=== PATIENT | female | born 1985 | race Caucasian/White ===

== ENCOUNTER 2016-06-25 20:22 | Emergency (ER) | payer MEDICAID, OTHER ==
[~2016-06-25] VITALS: Ht 165.1 cm; Wt 56.0 kg
[~2016-06-25 20:22] MED LIST: CEPH500C PO; IBUP800T23 PO; OXYC-360 PO; PRENTAB85; SENN1TAB11 PO
[2016-06-25 20:23] VITALS: BP 122/72; PULSE 118; RESP 16; TEMP 98.9; O2SAT 100
[2016-06-25] MEDS ORDERED: SODIUM CHLORIDE 0.9% FLUSH 10 ML FLUSH IV FLUSH PRN ×2 (22:15)
--- NOTE | 2016-06-25 22:17 | PD ---
HPI Chief Complaint: GI Complaint Time Seen by Provider: 22:02 Travel History International Travel<30 days: No Contact w/Intl Traveler<30days: No Traveled to known affect area: No History of Present Illness HPI 31-year-old female complains of right low quadrant abdominal pain. Patient states that the pain started this morning. Patient states the pain is cramping pain intermittent pain localized to right lower quadrant of the abdomen. Patient denies any pain radiation. Patient denies any fever chills. Patient denies any back pain. Patient denies any nausea vomiting diarrhea. Patient denies any dysuria or frequency. Patient denies any vaginal discharge or bleeding. Patient had similar pain episode and was seen at [facility] in [place] on June 17. Patient had blood tests done and pelvic exam done and pelvic ultrasound done at that time. Patient was diagnosed with dysmenorrhea. Patient states that the pain resolved completely the next day. Patient has been doing well until the pain started again on the right low quadrant of the abdomen today. On a scale of 1-10 the pain is a 7. PFSH Past Medical History Medical History: Denies Significant Hx Diminished Hearing: No ?: Unknown LMP: 06/14/16 Past Surgical History Section: Yes Social History Alcohol Use: No Tobacco Use: No Substance Use: No Allergies-Medications (Allergen,Severity, Reaction): Coded Allergies: No Known Allergies (Unverified , 06/25/16) Reported Meds & Prescriptions Reported Meds & Active Scripts Active No Active Prescriptions or Reported Medications Review of Systems General / Constitutional: No: Fever Eyes: No: Visual changes HENT: No: Headaches Cardiovascular: No: Chest Pain or Discomfort Respiratory: No: Shortness of Breath Gastrointestinal: Positive: Abdominal Pain Genitourinary: No: Dysuria Musculoskeletal: No: Pain Skin: No Rash Neurologic: No: Weakness Psychiatric: No: Depression Endocrine: No: Polydipsia Hematologic/Lymphatic: No: Easy Bruising Physical Exam Narrative GENERAL: Well-nourished, well-developed patient. SKIN: Warm and dry. HEAD: Normocephalic. EYES: No scleral icterus. No injection or drainage. NECK: Supple, trachea midline. No JVD or lymphadenopathy. CARDIOVASCULAR: Regular rate and rhythm without murmurs, gallops, or rubs. RESPIRATORY: Breath sounds equal bilaterally. No accessory muscle use. GASTROINTESTINAL: Abdomen soft, nondistended. Patient has mild to moderate tenderness on palpation right lower quadrant of the abdomen. No rebound tenderness. No mass. MUSCULOSKELETAL: No cyanosis, or edema. BACK: Nontender without obvious deformity. No CVA tenderness. Pelvic exam deferred. Patient does not have a pelvic pain today and she had pelvic exam done 8 days ago and culture were negative. Data Data Last Documented VS Vital Signs Date Time Temp Pulse Resp B/P Pulse Ox O2 Delivery O2 Flow Rate FiO2 06/25/16 20:23 98.9 118 16 122/72 100 Room Air Orders Complete Blood Count With Diff (06/25/16 22:10) Comprehensive Metabolic Panel (06/25/16 22:10) Urinalysis - C+S If Indicated (06/25/16 22:10) Ct Abd/Pel W Iv Contrast(Rout) (06/25/16 22:10) Iv Access Insert/Monitor (06/25/16 22:10) Sodium Chloride 0.9% Flush (Ns Flush) (06/25/16 22:15) Ed Urine Pregnancytest Poc (06/25/16 22:10) Lipase (06/25/16 22:10) Sodium Chloride 0.9% Flush (Ns Flush) (06/25/16 22:15) Iohexol 350 Inj (Omnipaque 350 Inj) (06/25/16 23:33) Labs Laboratory Tests Test 06/25/16 06/25/16 22:10 23:10 White Blood Count 8.0 TH/MM3 Red Blood Count 4.48 MIL/MM3 Hemoglobin 13.1 GM/DL Hematocrit 37.4 % Mean Corpuscular Volume 83.6 FL Mean Corpuscular Hemoglobin 29.3 PG Mean Corpuscular Hemoglobin 35.0 % Concent Red Cell Distribution Width 12.6 % Platelet Count 237 TH/MM3 Mean Platelet Volume 8.9 FL Neutrophils (%) (Auto) 64.5 % Lymphocytes (%) (Auto) 28.2 % Monocytes (%) (Auto) 6.5 % Eosinophils (%) (Auto) 0.6 % Basophils (%) (Auto) 0.2 % Neutrophils # (Auto) 5.2 TH/MM3 Lymphocytes # (Auto) 2.3 TH/MM3 Monocytes # (Auto) 0.5 TH/MM3 Eosinophils # (Auto) 0.1 TH/MM3 Basophils # (Auto) 0.0 TH/MM3 CBC Comment DIFF FINAL Differential Comment Sodium Level 140 MEQ/L Potassium Level 3.6 MEQ/L Chloride Level 108 MEQ/L Carbon Dioxide Level 23.1 MEQ/L Anion Gap 9 MEQ/L Blood Urea Nitrogen 12 MG/DL Creatinine 0.64 MG/DL Estimat Glomerular Filtration 109 ML/MIN Rate Random Glucose 154 MG/DL Calcium Level 9.0 MG/DL Total Bilirubin 0.3 MG/DL Aspartate Amino Transf 16 U/L (AST/SGOT) Alanine Aminotransferase 25 U/L (ALT/SGPT) Alkaline Phosphatase 69 U/L Total Protein 7.3 GM/DL Albumin 3.8 GM/DL Lipase 135 U/L Urine Color YELLOW Urine Turbidity HAZY Urine pH 5.5 Urine Specific [place] 1.023 Urine Protein NEG mg/dL Urine Glucose (UA) NEG mg/dL Urine Ketones NEG mg/dL Urine Occult Blood NEG Urine Nitrite NEG Urine Bilirubin NEG Urine Urobilinogen LESS THAN 2.0 MG/DL Urine Leukocyte Esterase MOD Urine RBC 1 /hpf Urine WBC 4 /hpf Urine Squamous Epithelial 7 /hpf Cells Urine Mucus FEW /lpf Microscopic Urinalysis Comment CULT NOT INDICATED MDM Medical Decision Making Medical Screen Exam Complete: Yes Emergency Medical Condition: Yes Interpretation(s) Last Impressions Abdomen/Pelvis CT 06/25/160 Signed Impressions: Service Date/Time: June 23:21 - CONCLUSION: 1. No acute abnormality to explain the patient's pain. In particular, the appendix is normal by CT criteria. 2. 4 mm lesion involving the tip of the liver. This is too small to accurately characterize with CT but likely relates to a cyst or hemangioma. Jamal Lai Jr., MD 12:23 AM. CBC within normal limit. CMP within normal limit. UA is negative. Differential Diagnosis Differential diagnosis including UTI, pyelonephritis, nephrolithiasis, appendicitis, ovarian cyst, ovarian torsion, ectopic . Narrative Course 31-year-old female with right low quadrant abdominal pain. Patient had blood tests and negative pelvic ultrasound recently. Diagnosis Primary Impression: Abdominal colic Patient Instructions: General Instructions Additional Instructions: Tylenol for pain. Follow-up with personal physician and GI specialist. Return if worse. Med/Other Pt SpecificInfo: No Meds Exist/No RX given Scripts No Active Prescriptions or Reported Meds Disposition: DISCHARGE HOME Condition: Stable Dandre Albright MD Jun 25, 2016 22:16
[2016-06-25 22:34] LABS: AUTOMATED NEUTROPHIL # 5.2 TH/MM3 (1.8-7.7); BASOPHIL % 0.2 % (0.0-2.0); EOSINOPHIL # 0.1 TH/MM3 (0-0.4); EOSINOPHIL % 0.6 % (0.0-4.0); HEMATOCRIT 37.4 % (35.0-46.0); HEMO FLAGS DIFF FINAL; LYMPH % 28.2 % (9.0-44.0); LYMPHOCYTE # 2.3 TH/MM3 (1.0-4.8); MEAN CELL VOLUME 83.6 FL (80.0-100.0); MEAN CORPUSCULAR HEMOGLOBIN 29.3 PG (27.0-34.0); MONO % 6.5 % (0.0-8.0); NEUT % 64.5 % (16.0-70.0); PLATELET COUNT 237 TH/MM3 (150-450); RED BLOOD COUNT 4.48 MIL/MM3 (4.00-5.30); RED CELL DISTRIBUTION WIDTH 12.6 % (11.6-17.2)
[2016-06-25 22:58] LABS: ANION GAP 9 MEQ/L (5-15); AST (GOT) 16 U/L (15-37); BICARBONATE 23.1 MEQ/L (21.0-32.0); BLOOD UREA NITROGEN 12 MG/DL (7-18); CHLORIDE 108 MEQ/L (98-107); GLOMERULAR FILTRATION RATE 109 ML/MIN (>89); POTASSIUM 3.6 MEQ/L (3.5-5.1); SODIUM (NA) 140 MEQ/L (136-145)
[2016-06-25 23:01] LABS: ALKALINE PHOSPHATASE 69 U/L (45-117); ALT (GPT) 25 U/L (10-53); TOTAL BILIRUBIN ADULT 0.3 MG/DL (0.2-1.0)
[2016-06-25] MEDS ORDERED: IOHEXOL 350 MG/ML 10 ML VIAL (for RAD DIAG) IV ONE (23:33)
[2016-06-25 23:42] LABS: BLOOD, URINE NEG (NEG); COMMENT (UR) CULT NOT INDICATED; CULTURE IF INDICATED CULT NOT INDICATED; GLUCOSE,URINE NEG (NEG); KETONE, URINE NEG (NEG); MUCUS URINE FEW /lpf (OCC); NITRITE,URINE NEG (NEG); PH, URINE 5.5 (5.0-8.5); SQUAMOUS EPITHELIAL CELL URINE 7 /hpf (0-5); URINE COLOR YELLOW (YELLW/STRAW)
--- NOTE | 2016-06-25 23:49 | RADRPT ---
EXAM DATE/TIME: 06/25/2016 23:21 [facility] COMPARISON: No previous studies available for comparison. INDICATIONS : Right lower quadrant pain with nausea, vomiting, and diarrhea. IV CONTRAST: 70 cc Omnipaque 350 (iohexol) IV ORAL CONTRAST: No oral contrast ingested. RADIATION DOSE: 4.56 CTDIvol (mGy) MEDICAL HISTORY : None SURGICAL HISTORY : None. ENCOUNTER: Initial ACUITY: 1 day PAIN SCALE: 9/10 LOCATION: Right lower quadrant abdomen TECHNIQUE: Volumetric scanning of the abdomen and pelvis was performed. Using automated exposure control and ad justment of the mA and/or kV according to patient size, radiation dose was kept as low as reasonably achievable to obtain optimal diagnostic quality images. FINDINGS: LOWER LUNGS: The visualized lower lungs are clear. LIVER: Homogeneous density. A 4 mm low-attenuation focus is seen involving the tip of the right lobe. There is no dilation of the biliary tree. No calcified gallstones. SPLEEN: Normal size without lesion. PANCREAS: Within normal limits. KIDNEYS: Normal in size and shape. There is no mass, stone or hydronephrosis. ADRENAL GLANDS: Within normal limits. VASCULAR: There is no aortic aneurysm. BOWEL/MESENTERY: The stomach, small bowel, and colon demonstrate no acute abnormality. There is no free intraperitone al air or fluid. The appendix is normal by CT criteria. ABDOMINAL WALL: Within normal limits. RETROPERITONEUM: There is no lymphadenopathy. BLADDER: No wall thickening or mass. REPRODUCTIVE: Within normal limits. INGUINAL: There is no lymphadenopathy or hernia. MUSCULOSKELETAL: Within normal limits for patient age. CONCLUSION: 1. No acute abnormality to explain the patient's pain. In particular, the appendix is normal by CT cr iteria. 2. 4 mm lesion involving the tip of the liver. This is too small to accurately characterize with CT b ut likely relates to a cyst or hemangioma. Jamal Lai Jr., MD on June 25, 2016 at 23:42 Board Certified Radiologist. This report was verified electronically.
== END 2016-06-26 00:33 | disposition home or self-care (01) ==
LOC: NEPE 20:22
DX: R10.84 Generalized abdominal pain (principal)
CPT/HCPCS: 74177; 80053; 81001; 83690; 84703; 85025; 99284; Q9967

== ENCOUNTER 2016-07-07 18:02 | Emergency (ER) | payer MEDICAID ==
[~2016-07-07] VITALS: Ht 152.4 cm; Wt 60.0 kg
[2016-07-07 18:04] VITALS: BP 132/69; PULSE 126; RESP 12; TEMP 98.1; O2SAT 99
--- NOTE | 2016-07-07 18:14 | PD ---
Physical Exam Date Seen by Provider: Jul 07, 2016 Time Seen by Provider: 18:12 Narrative 31 YOHF C/O SORE THROAT,N/V SINCE YEST. ABD PAIN. NO F/C. NO URINARY PROBLEMS. LMP06/14/16 VSS. AWAITING BED PLACEMENT Data Data Last Documented VS Vital Signs Date Time Temp Pulse Resp B/P Pulse Ox O2 Delivery O2 Flow Rate FiO2 07/07/16 18:04 98.1 126 12 132/69 99 MDM Medical Record Reviewed: Yes Supervised Visit with SHADE: Yes Scripts No Active Prescriptions or Reported MedEriberto Bourgeois Jul 07, 2016 18:14
--- NOTE | 2016-07-07 19:55 | PD ---
HPI Chief Complaint: GI Complaint Time Seen by Provider: 19:50 Travel History International Travel<30 days: No Contact w/Intl Traveler<30days: No Traveled to known affect area: No History of Present Illness HPI Patient is a 31-year-old female presents to the emergency department evaluation of sore throat, vomiting 2 today, nasal congestion, headache. She states her symptoms started today. She also reports right lower quadrant abdominal pain that is unchanged from her prior visit. Patient reports her last menstrual period was 06/14/16. [facility] Past Medical History Diminished Hearing: No Thyroid Disease: Yes (hyper) Tetanus Vaccination: > 5 Years ?: Not LMP: 06/14/2016 Past Surgical History Abdominal Surgery: Yes ( ) Section: Yes Social History Alcohol Use: No Tobacco Use: No Substance Use: No Allergies-Medications (Allergen,Severity, Reaction): Coded Allergies: No Known Allergies (Unverified , 06/25/16) Reported Meds & Prescriptions Reported Meds & Active Scripts Active No Active Prescriptions or Reported Medications Review of Systems Except as stated in HPI: all other systems reviewed are Neg General / Constitutional: No: Fever, Chills HENT: Positive: Headaches, Sore Throat, Congestion Cardiovascular: No: Chest Pain or Discomfort Respiratory: Positive: Cough, No: Shortness of Breath Gastrointestinal: Positive: Nausea, Vomiting (2, the last time was at 5:30) Genitourinary: No: Dysuria Musculoskeletal: No: Myalgias Neurologic: No: Weakness, Dizziness, Syncope Physical Exam Narrative GENERAL: Well-developed, well-nourished, alert female. Resting comfortably in no acute distress. SKIN: Focused skin assessment warm/dry. HEAD: Atraumatic. Normocephalic. EYES: Pupils equal and round. No scleral icterus. No injection or drainage. 1+ bilateral tonsillar hypertrophy. Mild erythema noted to posterior pharynx. ENT: No nasal bleeding or discharge. Mucous membranes pink and moist. NECK: Trachea midline. No JVD. CARDIOVASCULAR: Regular rate and rhythm. No murmur appreciated. RESPIRATORY: No accessory muscle use. Clear to auscultation. Breath sounds equal bilaterally. GASTROINTESTINAL: Abdomen soft, mildly tender right lower quadrant, no rebound, no guarding, nondistended. Hepatic and splenic margins not palpable. Positive bowel sounds. MUSCULOSKELETAL: No obvious deformities. No clubbing. No cyanosis. No edema. NEUROLOGICAL: Awake and alert. No obvious cranial nerve deficits. Motor grossly within normal limits. Normal speech. PSYCHIATRIC: Appropriate mood and affect; insight and judgment normal. Data Data Last Documented VS Vital Signs Date Time Temp Pulse Resp B/P Pulse Ox O2 Delivery O2 Flow Rate FiO2 07/07/16 18:04 98.1 126 12 132/69 99 Orders Group A Rapid Strep Screen (07/07/16 19:46) Influenzae A/B Antigen (07/07/16 19:46) Iv Access Insert/Monitor (07/07/16 19:46) Sodium Chloride 0.9% Flush (Ns Flush) (07/07/16 20:00) Ondansetron Inj (Zofran Inj) (07/07/16 20:00) Sodium Chlor 0.9% 1000 Ml Inj (Ns 1000 M (07/07/16 20:00) Strep Culture (Group A) (07/07/16 20:00) Sodium Chlor 0.9% 1000 Ml Inj (Ns 1000 M (07/07/16 20:45) MDM Medical Decision Making Medical Screen Exam Complete: Yes Emergency Medical Condition: Yes Interpretation(s) Vital Signs Date Time Temp Pulse Resp B/P Pulse Ox O2 Delivery O2 Flow Rate FiO2 07/07/16 18:04 98.1 126 12 132/69 99 Differential Diagnosis influenza vs strep pharyngitis vs viral syndrome vs gastroenteritis Narrative Course Patient is a 31-year-old female presenting to the emergency department for evaluation of a sore throat, vomiting 2, right lower quadrant abdominal pain which is chronic. Patient denies any fevers, chills, chest pain, shortness of breath. Her symptoms started this morning, she did not contact her primary doctor. She hasn't taken anything to alleviate the symptoms. Her elevated on arrival at 124, IV fluids 1 L ordered. Patient is Afebrile and her vital signs are otherwise stable. Strep and influenza are both negative. Patient continues to be tachycardic with a rate of 116, second liter of IV fluids ordered. Care of patient transferred to Jayesh MARTÍNEZ at the end my shift. He will determine patient's disposition. Scripts No Active Prescriptions or Reported Meds Jacy Anthony Jul 07, 2016 19:55
[2016-07-07] MEDS ORDERED: SODIUM CHLOR 0.9% 1000 ML INJ 1,000 ML IV ONE ×2 (20:00→20:45)
[2016-07-07] MEDS ORDERED: ONDANSETRON HCL 4 MG/2 ML VIAL IV PUSH ONE (20:00)
[2016-07-07] MEDS ORDERED: SODIUM CHLORIDE 0.9% FLUSH 10 ML FLUSH IVF PRN (20:00)
[2016-07-07 21:00] VITALS: BP 121/74; PULSE 104; RESP 16; TEMP 98.1; O2SAT 100
--- NOTE | 2016-07-07 21:42 | PD ---
Physical Exam Date Seen by Provider: Jul 07, 2016 Time Seen by Provider: 21:42 Narrative I was asked to see this patient by Zandra Lay at change of shift. Patient came in with nausea and vomiting 2 today with sore throat, and mild right upper quadrant pain. Labs are negative for influenza or strep throat. Patient states she had some heartburn associated with her symptoms today. She states she feels much improved after the 2 L of normal saline fluid that she was given today. Data Data Last Documented VS Vital Signs Date Time Temp Pulse Resp B/P Pulse Ox O2 Delivery O2 Flow Rate FiO2 07/07/16 18:04 98.1 126 12 132/69 99 Orders Group A Rapid Strep Screen (07/07/16 19:46) Influenzae A/B Antigen (07/07/16 19:46) Iv Access Insert/Monitor (07/07/16 19:46) Sodium Chloride 0.9% Flush (Ns Flush) (07/07/16 20:00) Ondansetron Inj (Zofran Inj) (07/07/16 20:00) Sodium Chlor 0.9% 1000 Ml Inj (Ns 1000 M (07/07/16 20:00) Strep Culture (Group A) (07/07/16 20:00) Sodium Chlor 0.9% 1000 Ml Inj (Ns 1000 M (07/07/16 20:45) Pantoprazole (Protonix) (07/07/16 21:45) MDM Medical Record Reviewed: Yes Supervised Visit with SHADE: Yes Differential Diagnosis Gastritis. Gastroenteritis. Vomiting. Esophagitis. Narrative Course Patient is given pantoprazole 40 mg by mouth. Patient was felt stable for discharge home. Patient will be continued on omeprazole 40 mg daily for the next 30 days. Patient also given Zofran 4 mg one every 6 hours when necessary nausea. #12. Patient is to rest with fluids and take Tylenol as needed. Patient to follow local primary care physician or return to emergency Department with worsening symptoms as needed. Diagnosis Primary Impression: Gastro-esophageal reflux Qualified Code: K21.9 - Gastroesophageal reflux disease, esophagitis presence not specified Additional Impression: Vomiting Qualified Code: R11.2 - Non-intractable vomiting with nausea, unspecified vomiting type Referrals: [facility] Physician Patient Instructions: Gastroesophageal Reflux Disease (ED), General Instructions Additional Instruction: Patient is given pantoprazole 40 mg by mouth. Patient was felt stable for discharge home. Patient will be continued on omeprazole 40 mg daily for the next 30 days. Patient also given Zofran 4 mg one every 6 hours when necessary nausea. #12. Patient is to rest with fluids and take Tylenol as needed. Patient to follow local primary care physician or return to emergency Department with worsening symptoms as needed. Med/Other Pt SpecificInfo: Prescription(s) given Scripts No Active Prescriptions or Reported Meds Disposition: 01 DISCHARGE HOME Condition: Stable Jayesh Abbott Jul 07, 2016 21:42
[2016-07-07] MEDS ORDERED: PANTOPRAZOLE SOD 40 MG DELAYED RELEASE TAB PO ONE (21:45)
[2016-07-07] MEDS ORDERED: OMEP40CA2 PO (21:51)
[2016-07-07] MEDS ORDERED: ZOFR4TAB PO (22:31)
== END 2016-07-07 22:42 | disposition home or self-care (01) ==
LOC: NEPA 18:02
DX: K21.9 Gastro-esophageal reflux disease without esophagitis (principal); R11.2 Nausea with vomiting, unspecified
CPT/HCPCS: 87081; 87804; 87880; 96361; 96374; 99284; J2405; J7030

== ENCOUNTER 2016-07-28 17:59 | Emergency (ER) | payer MEDICAID ==
[~2016-07-28] VITALS: Ht 152.4 cm; Wt 57.0 kg
[~2016-07-28 17:59] MED LIST changes: -CEPH500C PO; -IBUP800T23 PO; +OMEP40CA2 PO; -OXYC-360 PO; -PRENTAB85; -SENN1TAB11 PO; +ZOFR4TAB PO
[2016-07-28 18:01] VITALS: BP 128/86; PULSE 118; RESP 16; TEMP 98.3; O2SAT 99
--- NOTE | 2016-07-28 18:06 | PD ---
Physical Exam Date Seen by Provider: Jul 28, 2016 Time Seen by Provider: 18:04 Narrative Pt presents to the ED for evaluation of cough and sore throat for 4 days as well as sinus congestion. Pt denies any medical history, but has been seen here many times recently. VSS, pt has not taken any OTC meds. Data Data Last Documented VS Vital Signs Date Time Temp Pulse Resp B/P Pulse Ox O2 Delivery O2 Flow Rate FiO2 07/28/16 18:01 98.3 118 16 128/86 99 MDM Supervised Visit with SHADE: Jacy Pastrana Jul 28, 2016 18:06
--- NOTE | 2016-07-28 18:22 | PD ---
HPI . cough, sore throat, fever, and chest pain for 4 days Chief Complaint: Cold / Flu Symptoms Time Seen by Provider: 18:21 Travel History International Travel<30 days: No Contact w/Intl Traveler<30days: No Traveled to known affect area: No History of Present Illness HPI 31-year-old female with possible history of newly dx tachycardia here with complaints of cough, sore throat, fever and chest pain. Patient said that for the past 4 days she's been having some cough, sore throat and fever. On examination her heart rate is tachycardic, I asked her if this is normal and she tells me that she was told this once before and told that she needs to see a specialist. She has not yet seen anybody regarding her rapid heart rate, and tells me that today she's had some chest pain. When asked to point to the location of her chest pain she shows me right in the left chest wall and tells me it is deep and not reproducible on examination. She tells me she has had intermittent chest pain. She is somewhat of a poor historian and there is a slight language barrier as it does not seem luxembourger is her first language. She denies any nausea, vomiting or diaphoresis. SHe tells me she has been eating regularly. ON LICENSE OF [facility] Past Medical History Medical History: Denies Significant Hx Diminished Hearing: No Thyroid Disease: Yes (hyper) ?: Not LMP: 07/15/2016 Past Surgical History Abdominal Surgery: Yes ( ) Section: Yes Social History Alcohol Use: No Tobacco Use: No Substance Use: No Allergies-Medications (Allergen,Severity, Reaction): Coded Allergies: No Known Allergies (Unverified , 07/28/16) Reported Meds & Prescriptions Reported Meds & Active Scripts Active Propranolol (Propranolol HCl) 10 Mg Tab 10 Mg PO Q12HR Review of Systems General / Constitutional: Positive: Fever Eyes: No: Visual changes HENT: Positive: Sore Throat, No: Headaches Cardiovascular: Positive: Chest Pain or Discomfort, Palpitations Respiratory: Positive: Cough, No: Shortness of Breath Gastrointestinal: No: Abdominal Pain Genitourinary: No: Dysuria Musculoskeletal: No: Pain Skin: No Rash Neurologic: No: Weakness Psychiatric: No: Depression Endocrine: No: Polydipsia Hematologic/Lymphatic: No: Easy Bruising Physical Exam Narrative GENERAL: AAO x 3, no acute distress, Well-nourished, well-developed patient. SKIN: Warm and dry. No visible rashes or bruising. HEAD: Normocephalic and atraumatic. EYES: No scleral icterus. No injection or drainage. EOM intact, PERRLA ENT: No nasal drainage noted. Mucous membranes pink. Airway patent. Mild posterior pharynx erythema without exudates. TMs are cloudy bilaterally. NECK: Supple, trachea midline. No JVD. Slight lymphadenopathy of the cervical chain. CARDIOVASCULAR: Regular rate and rhythm without murmurs, gallops, or rubs. Heart rate on examination 120, rechecked with electronic cuff 115-120 RESPIRATORY: Breath sounds equal bilaterally. No accessory muscle use. No rhonchi or rales. No wheezing GASTROINTESTINAL: Abdomen soft, non-tender, nondistended. EXTREMITIES: No cyanosis or edema. BACK: Nontender without obvious deformity. No CVA tenderness. PSYCH: AAO x 3, normal affect. Data Data Last Documented VS Vital Signs Date Time Temp Pulse Resp B/P Pulse Ox O2 Delivery O2 Flow Rate FiO2 07/28/16 22:58 112 17 118/76 100 07/28/16 20:32 Room Air 07/28/16 18:01 98.3 Orders Electrocardiogram (07/28/16 18:33) Ckmb (Isoenzyme) Profile (07/28/16 18:33) Complete Blood Count With Diff (07/28/16 18:33) Comprehensive Metabolic Panel (07/28/16 18:33) D-Dimer (07/28/16 18:33) Magnesium (Mg) (07/28/16 18:33) Prothrombin Time / Inr (Pt) (07/28/16 18:33) Act Partial Throm Time (Ptt) (07/28/16 18:33) Troponin I (07/28/16 18:33) Iv Access Insert/Monitor (07/28/16 18:33) Oximetry (07/28/16 18:33) Sodium Chloride 0.9% Flush (Ns Flush) (07/28/16 18:45) Lactic Acid Sepsis Protocol (07/28/16 18:33) Urinalysis - C+S If Indicated (07/28/16 18:33) Influenzae A/B Antigen (07/28/16 18:33) Blood Culture (07/28/16 18:33) Blood Glucose (07/28/16 18:33) Group A Rapid Strep Screen (07/28/16 18:33) Chest, Pa & Lat (07/28/16 18:33) Sodium Chlor 0.9% 1000 Ml Inj (Ns 1000 M (07/28/16 18:45) Strep Culture (Group A) (07/28/16 19:00) Sodium Chlor 0.9% 1000 Ml Inj (Ns 1000 M (07/28/16 21:00) Urine Culture (07/28/16 20:30) Thyroid Stimulating Hormone (07/28/16 21:22) Free T3 (07/28/16 21:22) Free Thyroxine (T4) (07/28/16 21:22) Propranolol (Inderal) (07/28/16 22:30) Labs Laboratory Tests Test 07/28/16 07/28/16 07/28/16 19:00 20:30 21:22 White Blood Count 7.5 TH/MM3 Red Blood Count 5.12 MIL/MM3 Hemoglobin 14.8 GM/DL Hematocrit 43.0 % Mean Corpuscular Volume 83.9 FL Mean Corpuscular Hemoglobin 29.0 PG Mean Corpuscular Hemoglobin 34.5 % Concent Red Cell Distribution Width 12.6 % Platelet Count 274 TH/MM3 Mean Platelet Volume 9.0 FL Neutrophils (%) (Auto) 59.6 % Lymphocytes (%) (Auto) 30.9 % Monocytes (%) (Auto) 8.1 % Eosinophils (%) (Auto) 1.3 % Basophils (%) (Auto) 0.1 % Neutrophils # (Auto) 4.4 TH/MM3 Lymphocytes # (Auto) 2.3 TH/MM3 Monocytes # (Auto) 0.6 TH/MM3 Eosinophils # (Auto) 0.1 TH/MM3 Basophils # (Auto) 0.0 TH/MM3 CBC Comment DIFF FINAL Differential Comment Prothrombin Time 10.5 SEC Prothromb Time International 1.0 RATIO Ratio Activated Partial 25.2 SEC Thromboplast Time D-Dimer Quantitative (PE/DVT) 0.27 MG/L FEU Sodium Level 142 MEQ/L Potassium Level 4.1 MEQ/L Chloride Level 107 MEQ/L Carbon Dioxide Level 24.2 MEQ/L Anion Gap 11 MEQ/L Blood Urea Nitrogen 10 MG/DL Creatinine 0.55 MG/DL Estimat Glomerular Filtration 130 ML/MIN Rate Random Glucose 98 MG/DL Lactic Acid Level 1.1 mmol/L Calcium Level 9.6 MG/DL Magnesium Level 2.2 MG/DL Total Bilirubin 0.3 MG/DL Aspartate Amino Transf 18 U/L (AST/SGOT) Alanine Aminotransferase 27 U/L (ALT/SGPT) Alkaline Phosphatase 86 U/L Total Creatine Kinase 31 U/L Troponin I LESS THAN 0.02 NG/ML Total Protein 8.8 GM/DL Albumin 4.5 GM/DL Urine Color YELLOW Urine Turbidity CLEAR Urine pH 5.0 Urine Specific [place] 1.016 Urine Protein NEG mg/dL Urine Glucose (UA) NEG mg/dL Urine Ketones NEG mg/dL Urine Occult Blood NEG Urine Nitrite NEG Urine Bilirubin NEG Urine Urobilinogen LESS THAN 2.0 MG/DL Urine Leukocyte Esterase NEG Urine RBC LESS THAN 1 /hpf Urine WBC LESS THAN 1 /hpf Urine Squamous Epithelial 2 /hpf Cells Urine Bacteria RARE /hpf Urine Mucus FEW /lpf Microscopic Urinalysis Comment CATH-CULTURE IND Free Thyroxine 3.11 NG/DL Free Triiodothyronine (T3) 13.09 PG/ML pg/dL Thyroid Stimulating Hormone LESS THAN 3rd Gen 0.005 uIU/ML MDM Medical Decision Making Medical Screen Exam Complete: Yes Emergency Medical Condition: Yes Medical Record Reviewed: Yes Differential Diagnosis influenza, dehydration, sepsis, PNA, Narrative Course 31-year-old female with possible history of newly dx tachycardia here with complaints of cough, sore throat, fever and chest pain. Patient said that for the past 4 days she's been having some cough, sore throat and fever. On examination her heart rate is tachycardic, I asked her if this is normal and she tells me that she was told this once before and told that she needs to see a specialist. She has not yet seen anybody regarding her rapid heart rate, and tells me that today she's had some chest pain. When asked to point to the location of her chest pain she shows me right in the left chest wall and tells me it is deep and not reproducible on examination. She tells me she has had intermittent chest pain. She is somewhat of a poor historian and there is a slight language barrier as it does not seem lux[place] is her first language. She denies any nausea, vomiting or diaphoresis. SHe tells me she has been eating regularly. 1830:Patient seen and examined. She will need a medical bed for further evaluation. I will go ahead and start her testing. The next provider will determine her disposition. I discussed with Dr. Smith. 1902: I discussed the case with Jh Clayton PA-C. He is aware of the workup in progress. Patient is still waiting on medical bed. Scripts Propranolol 10 Mg Tab10 Mg PO Q12HR #60 TAB Ref 0 Prov:Davin Smith MD 07/28/16 Deidra Reyes Jul 28, 2016 18:21
[2016-07-28] MEDS ORDERED: SODIUM CHLOR 0.9% 1000 ML INJ 1,000 ML IV ONE ×2 (18:45→21:00)
[2016-07-28] MEDS ORDERED: SODIUM CHLORIDE 0.9% FLUSH 10 ML FLUSH IVF PRN (18:45)
--- NOTE | 2016-07-28 18:58 | RADRPT ---
EXAM DATE/TIME: 07/28/2016 18:47 [place] COMPARISON: No previous studies available for comparison. INDICATIONS : Cough and chest congestion for past few days. MEDICAL HISTORY : None. SURGICAL HISTORY : None. ENCOUNTER: Initial ACUITY: 3 days PAIN SCORE: 3/10 LOCATION: Bilateral chest FINDINGS: PA and lateral views of the chest demonstrate the lungs to be symmetrically aerated without evidence of mass, infiltrate or effusion. The cardiomediastinal contours are unremarkable. Osseous structure s are intact. CONCLUSION: No acute disease. Karl Gomez MD on July 28, 2016 at 18:56 Board Certified Radiologist. This report was verified electronically.
[2016-07-28 19:25] VITALS: BP 123/75; PULSE 113; RESP 18; O2SAT 100
[2016-07-28 19:40] LABS: AUTOMATED NEUTROPHIL # 4.4 TH/MM3 (1.8-7.7); BASOPHIL % 0.1 % (0.0-2.0); EOSINOPHIL # 0.1 TH/MM3 (0-0.4); EOSINOPHIL % 1.3 % (0.0-4.0); HEMO FLAGS DIFF FINAL; LYMPH % 30.9 % (9.0-44.0); LYMPHOCYTE # 2.3 TH/MM3 (1.0-4.8); MEAN CELL VOLUME 83.9 FL (80.0-100.0); MEAN CORPUSCULAR HGB CONC 34.5 % (32.0-36.0); MONO % 8.1 % (0.0-8.0); NEUT % 59.6 % (16.0-70.0); PLATELET COUNT 274 TH/MM3 (150-450); RED BLOOD COUNT 5.12 MIL/MM3 (4.00-5.30); RED CELL DISTRIBUTION WIDTH 12.6 % (11.6-17.2); WHITE BLOOD COUNT 7.5 TH/MM3 (4.0-11.0)
--- NOTE | 2016-07-28 19:49 | PD ---
Data Data Last Documented VS Vital Signs Date Time Temp Pulse Resp B/P Pulse Ox O2 Delivery O2 Flow Rate FiO2 07/28/16 22:58 112 17 118/76 100 07/28/16 20:32 Room Air 07/28/16 18:01 98.3 Orders Electrocardiogram (07/28/16 18:33) Ckmb (Isoenzyme) Profile (07/28/16 18:33) Complete Blood Count With Diff (07/28/16 18:33) Comprehensive Metabolic Panel (07/28/16 18:33) D-Dimer (07/28/16 18:33) Magnesium (Mg) (07/28/16 18:33) Prothrombin Time / Inr (Pt) (07/28/16 18:33) Act Partial Throm Time (Ptt) (07/28/16 18:33) Troponin I (07/28/16 18:33) Iv Access Insert/Monitor (07/28/16 18:33) Oximetry (07/28/16 18:33) Sodium Chloride 0.9% Flush (Ns Flush) (07/28/16 18:45) Lactic Acid Sepsis Protocol (07/28/16 18:33) Urinalysis - C+S If Indicated (07/28/16 18:33) Influenzae A/B Antigen (07/28/16 18:33) Blood Culture (07/28/16 18:33) Blood Glucose (07/28/16 18:33) Group A Rapid Strep Screen (07/28/16 18:33) Chest, Pa & Lat (07/28/16 18:33) Sodium Chlor 0.9% 1000 Ml Inj (Ns 1000 M (07/28/16 18:45) Strep Culture (Group A) (07/28/16 19:00) Sodium Chlor 0.9% 1000 Ml Inj (Ns 1000 M (07/28/16 21:00) Urine Culture (07/28/16 20:30) Thyroid Stimulating Hormone (07/28/16 21:22) Free T3 (07/28/16 21:22) Free Thyroxine (T4) (07/28/16 21:22) Propranolol (Inderal) (07/28/16 22:30) Labs Laboratory Tests Test 07/28/16 07/28/16 07/28/16 19:00 20:30 21:22 White Blood Count 7.5 TH/MM3 Red Blood Count 5.12 MIL/MM3 Hemoglobin 14.8 GM/DL Hematocrit 43.0 % Mean Corpuscular Volume 83.9 FL Mean Corpuscular Hemoglobin 29.0 PG Mean Corpuscular Hemoglobin 34.5 % Concent Red Cell Distribution Width 12.6 % Platelet Count 274 TH/MM3 Mean Platelet Volume 9.0 FL Neutrophils (%) (Auto) 59.6 % Lymphocytes (%) (Auto) 30.9 % Monocytes (%) (Auto) 8.1 % Eosinophils (%) (Auto) 1.3 % Basophils (%) (Auto) 0.1 % Neutrophils # (Auto) 4.4 TH/MM3 Lymphocytes # (Auto) 2.3 TH/MM3 Monocytes # (Auto) 0.6 TH/MM3 Eosinophils # (Auto) 0.1 TH/MM3 Basophils # (Auto) 0.0 TH/MM3 CBC Comment DIFF FINAL Differential Comment Prothrombin Time 10.5 SEC Prothromb Time International 1.0 RATIO Ratio Activated Partial 25.2 SEC Thromboplast Time D-Dimer Quantitative (PE/DVT) 0.27 MG/L FEU Sodium Level 142 MEQ/L Potassium Level 4.1 MEQ/L Chloride Level 107 MEQ/L Carbon Dioxide Level 24.2 MEQ/L Anion Gap 11 MEQ/L Blood Urea Nitrogen 10 MG/DL Creatinine 0.55 MG/DL Estimat Glomerular Filtration 130 ML/MIN Rate Random Glucose 98 MG/DL Lactic Acid Level 1.1 mmol/L Calcium Level 9.6 MG/DL Magnesium Level 2.2 MG/DL Total Bilirubin 0.3 MG/DL Aspartate Amino Transf 18 U/L (AST/SGOT) Alanine Aminotransferase 27 U/L (ALT/SGPT) Alkaline Phosphatase 86 U/L Total Creatine Kinase 31 U/L Troponin I LESS THAN 0.02 NG/ML Total Protein 8.8 GM/DL Albumin 4.5 GM/DL Urine Color YELLOW Urine Turbidity CLEAR Urine pH 5.0 Urine Specific [place] 1.016 Urine Protein NEG mg/dL Urine Glucose (UA) NEG mg/dL Urine Ketones NEG mg/dL Urine Occult Blood NEG Urine Nitrite NEG Urine Bilirubin NEG Urine Urobilinogen LESS THAN 2.0 MG/DL Urine Leukocyte Esterase NEG Urine RBC LESS THAN 1 /hpf Urine WBC LESS THAN 1 /hpf Urine Squamous Epithelial 2 /hpf Cells Urine Bacteria RARE /hpf Urine Mucus FEW /lpf Microscopic Urinalysis Comment CATH-CULTURE IND Free Thyroxine 3.11 NG/DL Free Triiodothyronine (T3) 13.09 PG/ML pg/dL Thyroid Stimulating Hormone LESS THAN 3rd Gen 0.005 uIU/ML [facility] Supervised Visit with SHADE: Yes Narrative Course Patient care assumed from Deidra Woo at 1900. On my evaluation the patient she does have some mildly proptotic eyes and is tachycardic. She is aren't completed a liter fluid bolus and unresponsive in her heart rate. No second liter bolus was given and clinical suspicion for hyperthyroidism is present. Thyroid panel was sent which confirms hyperthyroidism. There is no indication that this is thyroid storm. On review of systems patient does have some symptoms suggestive of hyperthyroidism including hair thinning and weight loss. Patient states she feels well and would like to go home. Her heart rate is 110 currently. Given there is no thyroid storm and think that an outpatient follow-up can be safely done. I strongly encouraged the patient to follow up with her primary care provider this week. She will be started on Inderal in the first dose was given in the emergency department. Discussed hypotensive symptoms and if she should have them she should consider returning to emergency department to be seen. On the subject of her upper respiratory symptoms remainder of her labs are within normal limits. There is no indication for antibiotics or further testing at this time. She is stable for discharge at this time. Diagnosis Primary Impression: Tachycardia Additional Impression: Hyperthyroidism Additional Instruction: Follow-up with your primary care provider by phone tomorrow to set up an appointment as soon as possible. Tell them that your thyroid is overactive ( hyperthyroidism) Med/Other Pt SpecificInfo: Prescription(s) given Scripts Propranolol 10 Mg Tab10 Mg PO Q12HR #60 TAB Ref 0 Prov:Davin Smith MD 07/28/16 Disposition: 01 DISCHARGE HOME Condition: Stable Davin Smith MD Jul 28, 2016 19:49
[2016-07-28 20:12] LABS: APTT (PATIENT) 25.2 SEC (24.3-30.1); PROTHROMBIN TIME - PATIENT 10.5 SEC (9.8-11.6)
[2016-07-28 20:32] VITALS: BP 125/70; PULSE 112; RESP 18; O2SAT 100
[2016-07-28 20:55] LABS: ALT (GPT) 27 U/L (10-53); ANION GAP 11 MEQ/L (5-15); AST (GOT) 18 U/L (15-37); BICARBONATE 24.2 MEQ/L (21.0-32.0); BLOOD UREA NITROGEN 10 MG/DL (7-18); CHLORIDE 107 MEQ/L (98-107); GLOMERULAR FILTRATION RATE 130 ML/MIN (>89); MAGNESIUM 2.2 MG/DL (1.5-2.5); POTASSIUM 4.1 MEQ/L (3.5-5.1); SODIUM (NA) 142 MEQ/L (136-145)
[2016-07-28 20:55] LABS: BACTERIA, URINE RARE /hpf; BLOOD, URINE NEG (NEG); GLUCOSE,URINE NEG (NEG); KETONE, URINE NEG (NEG); MUCUS URINE FEW /lpf (OCC); NITRITE,URINE NEG (NEG); SQUAMOUS EPITHELIAL CELL URINE 2 /hpf (0-5); URINE COLOR YELLOW (YELLW/STRAW)
[2016-07-28 20:57] LABS: COMMENT (UR) CATH-CULTURE IND; CULTURE IF INDICATED CATH CULTURE IND
[2016-07-28 20:59] LABS: ALKALINE PHOSPHATASE 86 U/L (45-117); CREATINE KINASE 31 U/L (26-192); TOTAL BILIRUBIN ADULT 0.3 MG/DL (0.2-1.0)
[2016-07-28 22:19] LABS: FREE T3 13.09 PG/ML (2.18-3.98); FREE T4 3.11 NG/DL (0.76-1.46)
[2016-07-28] MEDS ORDERED: PROPRANOLOL HCL 10 MG TAB PO ONE (22:30)
[2016-07-28] MEDS ORDERED: PROP10TA6 PO (22:32)
[2016-07-28 22:58] VITALS: BP 118/76
--- NOTE | 2016-07-29 10:47 | EKG ---
Date Performed: 07/28/2016 Time Performed: 18:40:08 PTAGE: 31 years EKG: SINUS TACHYCARDIA ABNORMAL RHYTHM ECG NO PREVIOUS TRACING DOCTOR: Marianela Sandoval Interpretating Date/Time 07/29/2016 10:45:00
== END 2016-07-28 22:59 | disposition home or self-care (01) ==
LOC: NEPD 17:59
DX: R00.0 Tachycardia, unspecified (principal); E05.90 Thyrotoxicosis, unspecified without thyrotoxic crisis or storm; I49.9 Cardiac arrhythmia, unspecified
CPT/HCPCS: 71020; 80053; 81001; 82550; 83605; 83735; 84439; 84443; 84481; 84484; 85025; 85379; 85610; 85730; 87040; 87081; 87086; 87804; 87880; 93005; 96360; 99284; J7030

== ENCOUNTER 2016-09-09 18:11 | Emergency (ER) | payer MEDICAID ==
[~2016-09-09] VITALS: Ht 152.4 cm; Wt 56.5 kg
[~2016-09-09 18:11] MED LIST changes: -OMEP40CA2 PO; +PROP10TA6 PO; -ZOFR4TAB PO
[2016-09-09 18:12] VITALS: BP 119/65; PULSE 104; RESP 20; TEMP 98.8; O2SAT 98
--- NOTE | 2016-09-09 18:38 | PD ---
Physical Exam Time Seen by Provider: 18:37 Narrative 31yo F requesting refill for propranolol for hyperthyroidism. Last took medication August 30. Patient seen in triage. VS reviewed. Awaiting bed placement. Data Data Last Documented VS Vital Signs Date Time Temp Pulse Resp B/P Pulse Ox O2 Delivery O2 Flow Rate FiO2 09/09/16 18:12 98.8 104 20 119/65 98 Room Air [facility] Supervised Visit with SHADE: Leeanne Farley Sep 09, 2016 18:38
--- NOTE | 2016-09-09 19:18 | PD ---
HPI . needs refill on inderal/ no complaints Chief Complaint: Medication Refill Request Time Seen by Provider: 19:15 Travel History International Travel<30 days: No Contact w/Intl Traveler<30days: No Traveled to known affect area: No History of Present Illness HPI 31-year-old female here requesting a refill on her propanolol 10 mg. Patient tells me that she was given this prescription here in the emergency department. I actually remember this patient from her initial visit as I was the provider started her care. She was advised to follow-up with primary care provider and endocrinology. She was diagnosed with hyperthyroidism. She has no complaints. Her primary care provider will not provide her refills until she is seen by endocrinology, which she has not been able to do yet. PFSH Past Medical History Diminished Hearing: No Thyroid Disease: Yes (hyper) ?: Not LMP: 08/14/16 Past Surgical History Abdominal Surgery: Yes ( ) Section: Yes Social History Alcohol Use: No Tobacco Use: No Substance Use: No Allergies-Medications (Allergen,Severity, Reaction): Coded Allergies: No Known Allergies (Unverified , 07/28/16) Reported Meds & Prescriptions Reported Meds & Active Scripts Active Propranolol (Propranolol HCl) 10 Mg Tab 10 Mg PO Q12HR Review of Systems General / Constitutional: No: Fever Eyes: No: Visual changes HENT: No: Headaches Cardiovascular: No: Chest Pain or Discomfort Respiratory: No: Shortness of Breath Gastrointestinal: No: Abdominal Pain Genitourinary: No: Dysuria Musculoskeletal: No: Pain Skin: No Rash Neurologic: No: Weakness Psychiatric: No: Depression Endocrine: No: Polydipsia Hematologic/Lymphatic: No: Easy Bruising Physical Exam Narrative GENERAL: AAO x 3, no acute distress, Well-nourished, well-developed patient. SKIN: Warm and dry. No visible rashes or bruising. HEAD: Normocephalic and atraumatic. EYES: No scleral icterus. No injection or drainage. EOM intact, PERRLA exophthalmus left greater than right ENT: No nasal drainage noted. Mucous membranes pink. Airway patent. NECK: Supple, trachea midline. No JVD. CARDIOVASCULAR: Regular rate and rhythm without murmurs, gallops, or rubs. RESPIRATORY: Breath sounds equal bilaterally. No accessory muscle use. No rhonchi or rales. GASTROINTESTINAL: Abdomen soft, non-tender, nondistended. EXTREMITIES: No cyanosis or edema. BACK: Nontender without obvious deformity. No CVA tenderness. PSYCH: AAO x 3, normal affect. Data Data Last Documented VS Vital Signs Date Time Temp Pulse Resp B/P Pulse Ox O2 Delivery O2 Flow Rate FiO2 09/09/16 18:12 98.8 104 20 119/65 98 Room Air MDM Medical Decision Making Medical Screen Exam Complete: Yes Emergency Medical Condition: Yes Medical Record Reviewed: Yes Differential Diagnosis Medication refill, hyperthyroidism, less likely thyroid storm Narrative Course 31-year-old female here for refill on her propanolol. She has no complaints. I've advised her that I can provide her with 2 weeks worth of medication and ultimately she will need to see her primary care provider in endocrinology. I explained to her that she'll need to obtain further refills from her outpatient providers Patient verbalized understanding of instructions, questions were answered, and thanked me for their care. I advised them if their condition worsens, please return to the nearest emergency room for further care. Diagnosis Primary Impression: Medication refill Patient Instructions: General Instructions Additional Instructions: Please return to emergency department if your symptoms return or worsen. Follow up with your primary care provider. Med/Other Pt SpecificInfo: Prescription(s) given Scripts Propranolol 10 Mg Tab10 Mg PO Q12HR #30 TAB Ref 0 Prov:Al Bauer MD 09/09/16 Disposition: 01 DISCHARGE HOME Condition: Stable Deidra Reyes Sep 09, 2016 19:18
[2016-09-09] MEDS ORDERED: PROP10TA6 PO (19:19)
== END 2016-09-09 19:31 | disposition home or self-care (01) ==
LOC: NEPD 18:11
DX: E05.90 Thyrotoxicosis, unspecified without thyrotoxic crisis or storm (principal); Z76.0 Encounter for issue of repeat prescription
CPT/HCPCS: 99281

== ENCOUNTER 2017-03-30 15:15 | Emergency (ER) | payer MEDICAID ==
[2017-03-30 15:16] VITALS: BP 134/73; PULSE 97; RESP 12; TEMP 98.2; O2SAT 99
[2017-03-30] MEDS ORDERED: CLOT1CRE6 TOPICAL (16:25)
--- NOTE | 2017-03-30 16:30 | PD ---
HPI Chief Complaint: Skin Problem Time Seen by Provider: 16:19 Travel History International Travel<30 days: No Contact w/Intl Traveler<30days: No Traveled to known affect area: No History of Present Illness HPI Patient comes in complaining of a pruritic rash ongoing for approximately 2 weeks. Patient states she went to a different ER and had been given a prescription an allergic reaction. Patient states she took it for 5 days with no improvement of symptoms. Patient states started off as small read spot and has spread to bilateral lower extremities and under her breast. Patient states is pruritic in nature without radiation. Denies anything making symptoms worse. Denies any fevers, weight loss, , known new allergen exposures , or being around anyone else with similar. PFSH Past Medical History Diminished Hearing: No Immunizations Current: Yes Thyroid Disease: Yes (hyper) Tetanus Vaccination: Unknown Influenza Vaccination: No ?: Not LMP: 03/23/2017 Past Surgical History Abdominal Surgery: Yes ( ) Section: Yes Social History Alcohol Use: No Tobacco Use: No Substance Use: No Allergies-Medications (Allergen,Severity, Reaction): Coded Allergies: No Known Allergies (Unverified , 07/28/16) Reported Meds & Prescriptions Reported Meds & Active Scripts Active Clotrimazole Anti-Fungal Topical (Clotrimazole) 1% Cream 1 Applic TOPICAL BID Propranolol (Propranolol HCl) 10 Mg Tab 10 Mg PO Q12HR Review of Systems Except as stated in HPI: all other systems reviewed are Neg Physical Exam Narrative GENERAL: Well-developed, well nourished, in no acute distress, and non-ill appearing. SKIN: Focused skin assessment warm and dry. Fungal appearing rash noted bilateral lower extremities distally. There is no signs of scabies, folliculitis, impetigo, syphilis or abscess. There is no crepitus. HEAD: Atraumatic. Normocephalic. EYES: Pupils equal and round. EOMI. No scleral icterus. No injection or drainage. ENT: No nasal bleeding or discharge. Mucous membranes pink and moist. NECK: Trachea midline. Supple. No nuclear rigidity. RESPIRATORY: No accessory muscle use. No respiratory distress. MUSCULOSKELETAL: No obvious deformities. No clubbing. No cyanosis. No edema. Full range of motion. NEUROLOGICAL: Awake and alert. No obvious cranial nerve deficits. Motor grossly within normal limits. Normal speech. PSYCHIATRIC: Appropriate mood and affect; insight and judgment normal. Data Data Last Documented VS Vital Signs Date Time Temp Pulse Resp B/P (MAP) Pulse Ox O2 Delivery O2 Flow Rate FiO2 03/30/17 16:36 03/30/17 15:16 98.2 97 12 99 Orders Orders Ed Discharge Order (03/30/17 16:30) MDM Medical Decision Making Medical Screen Exam Complete: Yes Emergency Medical Condition: Yes Differential Diagnosis Allergic reaction, fungal rash, scabies, cellulitis, impetigo Narrative Course Patient looks great and was non-ill appearing. There was no evidence to suggest scabies, cellulitis, folliculitis or abscess, Staph. Scalded Skin Syndrome, Toxic Shock, Toxic Epidermal necrolysis, Kawasaki, Measles, Rubella, cutaneous T cell lymphoma, Erythema Multiforme (minor or major). Plan of care was discussed with the patient and the patient is to follow up with their physician. The patient agreed with plan. Patient in no obvious distress upon re-evaluation. Patient was asked if they wanted to speak to my attending, which the patient did not wish to do at this time. Any questions/concerns in reference to patient diagnosis/condition discussed and clarified prior to patient's discharge. Reinforced sheer importance of close follow up with patient's primary physician or primary care clinic and/or a interactive media marketing director. Instructed patient to return to ED immediately, if symptoms return/worsen. Patient showed understanding of above instructions. Further instructions and recommendations were detailed in discharge paperwork. Patient ambulated without difficulty out of ED at discharge. Diagnosis Primary Impression: Tinea Referrals: Manager Industrial Primary Care Physician Patient Instructions: General Instructions, Skin Yeast Infection (ED) Additional Instructions: Follow-up with your primary care physician and/or interactive media marketing director this week for reevaluation. Take all medication as prescribed. Return to the emergency department if symptoms get worse.s Med/Other Pt SpecificInfo: Prescription(s) given Scripts Clotrimazole Topical (Clotrimazole Anti-Fungal Topical) 1% Cream 1 APPLIC TOPICAL BID for Fungal Infection, #1 TUBE 0 Refills Prov: Milli Noguera MD 03/30/17 Disposition: 01 DISCHARGE HOME Condition: Stable Pola Freeman Mar 30, 2017 16:30
== END 2017-03-30 16:40 | disposition home or self-care (01) ==
LOC: NEPK 15:15
DX: B35.9 Dermatophytosis, unspecified (principal)
CPT/HCPCS: 99283